=== PATIENT | female | born 1950 | race Caucasian/White ===

== ENCOUNTER → 2020-05-08 | Outpatient (CLI) | payer MEDICARE | END | disposition home or self-care (01) | LOC: CVU 12:40 | PROVIDERS: ATTEND Internal Medicine Cardiovascular Disease | DX: I08.3 Combined rheumatic disorders of mitral, aortic and tricuspid valves (principal); I10 Essential (primary) hypertension; I48.91 Unspecified atrial fibrillation | CPT/HCPCS: 93306 ==

== ENCOUNTER → 2020-06-03 | Outpatient (CLI) | payer MEDICARE | END | disposition home or self-care (01) | LOC: CVU 06:39 | PROVIDERS: ATTEND Registered Nurse | DX: I65.23 Occlusion and stenosis of bilateral carotid arteries (principal); I10 Essential (primary) hypertension | CPT/HCPCS: 93880 ==

== ENCOUNTER → 2020-12-10 | Outpatient (CLI) | payer MEDICARE | END | disposition home or self-care (01) | LOC: CFH 10:24 | PROVIDERS: ATTEND Family Medicine | DX: Z12.31 Encounter for screening mammogram for malignant neoplasm of breast (principal) | CPT/HCPCS: 77067 ==

== ENCOUNTER → 2021-04-13 | Outpatient (CLI) | payer MEDICARE ==
[~2021-04-13] MED LIST: ACET-1600 PO; ASCO100018 PO; ATOR10TA PO; BUPR150T22 PO; CALC-112 PO; CETI-158 PO; DILT360C26 PO; MULT-449 PO; PROP10TA16 PO; RIZA10TA5 PO; TRAM50TA2 PO; TRAZ-175 PO; UBID100C41 PO; WARF1TAB74 PO
== END | disposition home or self-care (01) ==
LOC: STAR 09:56
PROVIDERS: ATTEND Otolaryngology
DX: Z01.818 Encounter for other preprocedural examination (principal); C06.9 Malignant neoplasm of mouth, unspecified; I49.3 Ventricular premature depolarization
CPT/HCPCS: 93005

== ENCOUNTER 2021-04-20 07:22 | Day surgery (SDC) | payer MEDICARE ==
[~2021-04-20] VITALS: Ht 160 cm; Wt 50.2 kg
[2021-04-20 07:55] VITALS: BP 137/86
[2021-04-20] MEDS ORDERED: CHLORHEXIDINE 15 ML UDC PO ONE (08:00)
[2021-04-20] MEDS ORDERED: LACTATED RINGERS 1,000 ML IV SCH (08:00)
[2021-04-20] MEDS ORDERED: CHLORHEXIDINE 15 ML UDC ONE (08:05)
[2021-04-20 08:47] LABS: PROTHROMBIN TIME 10.7 Seconds (9.6-11.5)
[2021-04-20] MEDS ORDERED: LIDOCAINE/PF 1%, 30ML ONE (08:59)
[2021-04-20] MEDS ORDERED: EPINEPHRINE 1 MG/ML, 1ML ONE (09:00)
[2021-04-20] MEDS ORDERED: MINERAL OIL 10 ML VIAL MC ONE (09:06)
[2021-04-20] MEDS ORDERED: FENTANYL PF 100 MCG/2ML ONE ×2 (09:21→11:47)
[2021-04-20] MEDS ORDERED: DEXAMETHASONE 4 MG/ML, 1ML ONE (09:25)
[2021-04-20] MEDS ORDERED: GLYCOPYRROLATE 0.2MG/1ML, 5ML ONE (09:25)
[2021-04-20] MEDS ORDERED: PROPOFOL 10 MG/ML, 20ML ONE (09:25)
[2021-04-20] MEDS ORDERED: NEOSTIGMINE 1 MG/ML, 10ML ONE (09:25)
[2021-04-20] MEDS ORDERED: ROCURONIUM 10 MG/ML,10ML ONE (09:25)
[2021-04-20] MEDS ORDERED: ONDANSETRON 2MG/ML, 2ML ONE (09:25)
[2021-04-20] MEDS ORDERED: OXYC5TAB2 PO (10:51)
[2021-04-20] MEDS ORDERED: SENN-99 PO (10:51)
[2021-04-20] MEDS ORDERED: HYDROmorphone 2 MG/ML, 1ML IVPush PRN (11:00)
[2021-04-20] MEDS ORDERED: hydrALAzine 20 MG/ML, 1ML IV PRN (11:00)
[2021-04-20] MEDS ORDERED: KETOROLAC 30 MG/1 ML IV PRN (11:00)
[2021-04-20] MEDS ORDERED: DIAZEPAM 5 MG/ML, 2ML IVPush PRN (11:00)
[2021-04-20] MEDS ORDERED: LABETALOL 5MG/ML, 20ML IV PRN (11:00)
[2021-04-20] MEDS ORDERED: OXYcodone 5 MG/5 ML ORAL.SOL UDC PO PRN (11:00)
[2021-04-20] MEDS ORDERED: PROMETHAZINE 25 MG/ML, 1ML IV PRN (11:00)
[2021-04-20] MEDS ORDERED: ACETAMINOPHEN 325 MG TABLET PO PRN (11:00)
[2021-04-20] MEDS ORDERED: FENTANYL PF 100 MCG/2ML IV PRN (11:00)
[2021-04-20] MEDS ORDERED: ALBUTEROL SULFATE 2.5 MG/3 ML NPPB PRN (11:00)
[2021-04-20] MEDS ORDERED: MEPERIDINE/PF 25MG/0.5ML IVPush PRN (11:00)
[2021-04-20] MEDS ORDERED: PROMETHAZINE 25 MG/ML, 1ML ONE (11:30)
[2021-04-20] MEDS ORDERED: MEPERIDINE/PF 25MG/ML,1ML ONE (12:24)
== END 2021-04-20 13:35 | disposition home or self-care (01) ==
LOC: OUT 07:22
PROVIDERS: ATTEND Otolaryngology
DX: C06.9 Malignant neoplasm of mouth, unspecified (principal); I48.91 Unspecified atrial fibrillation; H61.21 Impacted cerumen, right ear; H90.3 Sensorineural hearing loss, bilateral; Z79.01 Long term (current) use of anticoagulants; Z79.899 Other long term (current) drug therapy; Z95.0 Presence of cardiac pacemaker
CPT/HCPCS: 14040; 36415; 85610; 85730; 88305; 88331; J0171; J1100; J1885; J2175; J2405; J2550; J2704; J2710; J3010; J7120